=== PATIENT | female | born 1995 | race African-American/Black ===

== ENCOUNTER 2017-06-20 16:39 | Emergency (ER) | payer OTHER ==
[~2017-06-20 16:39] MED LIST: PRENATAL GUMMI1 EACH PO; PRENATAL TABLE1 EAC2 PO; REGLAN10 M1 PO; ZOFRAN ODT4 M1 PO; ZOFRAN ODT4 M1 SL; ZOFRAN4 M2 PO
[2017-06-21] MEDS ORDERED: ZOFRAN ODT4 M1 SL (21:59)
== END 2017-06-20 17:45 | disposition admitted as inpatient to this hospital (09) ==
LOC: ERH 16:39
DX: R11.2 Nausea with vomiting, unspecified (principal)
CPT/HCPCS: J2405

== ENCOUNTER 2017-06-21 21:17 | Emergency (ER) | payer OTHER ==
[~2017-06-21] VITALS: Ht 152.4 cm; Wt 60.8 kg
--- NOTE | 2017-06-21 21:38 | ED GI/GU/ABDOMINAL COMPLAINT ---
History of Present Illness General Chief Complaint: General Adult Stated Complaint: "6 WKS PREG, N+V+D" Source: patient Exam Limitations: no limitations Vital Signs & Intake/Output Vital Signs & Intake/Output Vital Signs Date Time Temp Pulse Resp B/P B/P Pulse O2 O2 Flow FiO2 Mean Ox Delivery Rate 06/22 0001 96.7 80 16 128/71 99 Room Air 06/21 2127 98.6 123 18 131/82 98 Room Air ED Intake and Output 06/22 0000 06/21 1200 Intake Total Output Total Balance Patient 134 lb Weight Weight Reported by Patient Measurement Method Allergies Coded Allergies: NO KNOWN ALLERGIES (08/24/15) Reconcile Medications Metoclopramide HCl (Reglan) 10 MG TABLET 1 TAB PO 4 TIMES/DAY NAUSEA ( Reported) 30 minutes before meals and bedtime Ondansetron (Zofran Odt) 4 MG TAB.RAPDIS 1 TAB SL TID PRN nausea Ondansetron (Zofran Odt) 4 MG TAB.RAPDIS 1 TAB SL TID PRN NAUSEA AND VOMITING Vui742/FA/Omega3/Dha/Fish Oil ( Gummies) 1 EACH TAB.CHEW 1 TAB PO D SUPPLEMENTAL (Reported) Triage Note: PT IS 6 WEEKS , . PT TO ED C/O +N/V/D FOR 2 WEEKS "IT'S BEEN GOING ON SINCE I FOUND OUT I WAS 2 WEEKS AGO" OB IS [facility] [place]. HAD FIRST APPOINTMENT 4 DAYS AGO. DID NOT CALL OB. DENIES VAGINAL BLEEDING, DENIES STELLA BLOOD IN DIARHHEA Triage Nurses Notes Reviewed? yes ? y Is pt currently ? No Onset: Gradual Duration: day(s):, waxing and waning Timing: recent history Quality/Severity: cramping Location: generalized abdomen Radiation: no radiation Modifying Factors: Worsens With: vomiting. Associated Symptoms: nausea/vomiting HPI: 22 yo woman , 6 weeks gestation presents with 2-3 days of nausea, vomiting, "can't keep anything down." She has seen her ENGINEERING AND DEVELOPMENT DIRECTOR, had an ultrasound, was told, "everything is alright." She has no dysuria, diarrhea, vaginal discharge, vaginal bleeding, abdominal pain. She is otherwise well. Past History Travel History Traveled to [place] past 21 day No Medical History Any Pertinent Medical History? see below for history Neurological: NONE EENT: NONE Cardiovascular: NONE Respiratory: NONE Gastrointestinal: NONE Hepatic: NONE Renal: NONE Musculoskeletal: NONE Psychiatric: NONE Endocrine: NONE Blood Disorders: NONE Cancer(s): NONE ENGINEERING AND DEVELOPMENT DIRECTOR/Reproductive: NONE Surgical History Surgical History: N Psychosocial History What is your primary language Faroese Tobacco Use: Never used ETOH Use: denies use Illicit Drug Use: denies illicit drug use Family History Hx Contributory? No Review of Systems Review of Systems Constitutional: Reports: no symptoms. EENTM: Reports: no symptoms. Respiratory: Reports: no symptoms. Cardiovascular: Reports: no symptoms. GI: Reports: no symptoms. Genitourinary: Reports: no symptoms. Musculoskeletal: Reports: no symptoms. Skin: Reports: no symptoms. Neurological/Psychological: Reports: no symptoms. Hematologic/Endocrine: Reports: no symptoms. Immunologic/Allergic: Reports: no symptoms. All Other Systems: Reviewed and Negative Physical Exam Physical Exam General Appearance: well developed/nourished, mild distress Head: atraumatic, normal appearance Eyes: Bilateral: normal appearance. Ears, Nose, Throat, Mouth: hearing grossly normal, moist mucous membrane Neck: normal inspection, full range of motion Respiratory: normal breath sounds Cardiovascular: regular rate/rhythm Gastrointestinal: normal bowel sounds, soft, non-tender Back: normal inspection Extremities: normal range of motion Comments: bedside u/s.... +IUP Core Measures ACS in differential dx? No Sepsis Present: No Sepsis Focused Exam Completed? No Progress Differential Diagnosis: UTI/pyelo, hyperemesis vs other. Plan of Care: Orders Procedure Date/time Status URINALYSIS 06/21 2132 Complete LIPASE 06/21 2132 Complete HEPATIC FUNCTION PANEL 06/21 2132 Complete HUMAN BETA HCG TITRE 06/21 2132 Complete CBC WITHOUT DIFFERENTIAL 06/21 2132 Complete BASIC METABOLIC PANEL 06/21 2132 Complete AMYLASE 06/21 2132 Complete Laboratory Tests 06/21/17 2210: Anion Gap 18 H, Estimated GFR > 60, BUN/Creatinine Ratio 11.7, Glucose 80, Calcium 9.9, Total Bilirubin 1.3, Direct Bilirubin 0.6 H, AST 23, ALT 27, Alkaline Phosphatase 56, Total Protein 8.9 H, Albumin 5.4 H, Amylase 90, Lipase 98, Beta HCG, Quant 94249.0, CBC w Diff NO MAN DIFF REQ, RBC 5.29, MCV 90.9, MCH 30.6, MCHC 33.7, RDW 12.4, MPV 8.3, Gran % 78.0 H, Lymphocytes % 16.7 L, Monocytes % 4.6, Eosinophils % 0.3, Basophils % 0.4, Absolute Granulocytes 6.7 H, Absolute Lymphocytes 1.4, Absolute Monocytes 0.4, Absolute Eosinophils 0 , Absolute Basophils 0, Urine Color YEL, Urine Clarity HAZY H, Urine pH 6.0, Ur Specific [place] >= 1.030, Urine Protein TRACE H, Urine Ketones 40 H, Urine Nitrite NEG, Urine Bilirubin NEG, Urine Urobilinogen 0.2, Ur Leukocyte Esterase NEG, Ur Microscopic SEDIMENT EXAMINED, Urine WBC 3-5 H, Ur Epithelial Cells MOD H, Urine Bacteria MOD H, Urine Hemoglobin NEG, Urine Glucose NEG Initial ED EKG: none Departure Departure Disposition: HOME OR SELF CARE Condition: Stable Clinical Impression Primary Impression: Hyperemesis Secondary Impressions: Referrals: Unknown (PCP/Family) Departure Forms: Customer Survey General Discharge Information Prescriptions: Current Visit Scripts Ondansetron (Zofran Odt) 1 TAB SL TID PRN nausea #10 TAB Ref 2 Comments 06/21/17, 23:15.... pt feeling well, labs benign... pt feels comfortably going home after 2nd liter of iv fluids.
[2017-06-21] MEDS ORDERED: ZOFRAN ODT4 M1 SL (21:59)
[2017-06-21 22:21] LABS: ABSOLUTE BASOPHIL COUNT 0 /CUMM (0.0-0.2); ABSOLUTE EOSINOPHIL COUNT 0 /CUMM (0.0-0.7); ABSOLUTE GRANULOCYTE CT 6.7 /CUMM (1.4-6.5); ABSOLUTE LYMPH COUNT 1.4 /CUMM (1.2-3.4); ABSOLUTE MONOCYTE COUNT 0.4 /CUMM (0.10-0.60); BASOPHIL % 0.4 % (0.0-2.0); EOSINOPHIL % 0.3 % (0-5); HEMATOCRIT 48.1 % (37-47); MEAN CORPUSCULAR HGB 30.6 PG (27.0-31.0); MEAN CORPUSCULAR HGB CONC 33.7 G/DL (33.0-37.0); MEAN CORPUSCULAR VOLUME 90.9 FL (81.0-99.0); MEAN PLATELET VOLUME 8.3 FL (7.4-10.4); PLATELET COUNT 315 /CUMM (130-400); RBC DISTRIBUTION WIDTH 12.4 % (11.5-14.5); RED BLOOD CELL CT 5.29 /CUMM (4.20-5.40); WHITE BLOOD CELL COUNT 8.6 /CUMM (4.8-10.8)
[2017-06-22 00:01] VITALS: BP 128/71
== END 2017-06-22 00:32 ==
LOC: ERH 21:17
PROVIDERS: Pediatrics
DX: O21.0 Mild hyperemesis gravidarum (principal); Z3A.01 Less than 8 weeks gestation of pregnancy
CPT/HCPCS: 81001; 96360; 96361

== ENCOUNTER 2017-07-12 13:04 | Emergency (ER) | payer OTHER ==
[~2017-07-12] VITALS: Ht 152.4 cm; Wt 55.8 kg
[2017-07-12 13:26] VITALS: BP 145/100
== END 2017-07-12 15:30 | disposition admitted as inpatient to this hospital (09) ==
LOC: ERH 13:04
DX: O21.9 Vomiting of pregnancy, unspecified (principal)